=== PATIENT | male | born 1955 | race Caucasian/White ===

== ENCOUNTER 2017-12-03 08:52 | Emergency (ER) | payer BC ==
[2017-12-03 09:14] VITALS: BP 155/85
[2017-12-03] MEDS ORDERED: Albuterol 2.5 MG/3 ML NEB.SOL* (0.083%) INH ONE (09:35)
[2017-12-03] MEDS ORDERED: Ipratropium 0.5MG/2.5ML NEB* 0.5 MG/2.5 ML NEB.SOLN INH ONE (09:35)
--- NOTE | 2017-12-03 09:35 | UC ---
Respiratory Complaint HPI - HPI Summary HPI Summary: The patient is a 62-year-old male with a 1 week history of cough. He has had some shortness of breath with exertion. He states that if he attempts to take a deep breath in or talk he starts to cough. He is had no fever or chills. He denies any chest pain. His a smoker. He has had bronchitis. - History of Current Complaint Chief Complaint: UCRespiratory Stated Complaint: COUGH Time Seen by Provider: 12/03/17 09:29 Hx Obtained From: Patient Onset/Duration: Gradual Onset, Lasting Days Timing: Constant Severity Initially: Mild Severity Currently: Mild Pain Intensity: 3 Pain Scale Used: 0-10 Numeric Character: Cough: Nonproductive Aggravating Factors: Deep Breaths Alleviating Factors: Nothing Associated Signs And Symptoms: Positive: Wheezing - Allergies/Home Medications Allergies/Adverse Reactions: Allergies Allergy/AdvReac Type Severity Reaction Status Date / Time Penicillins Allergy Unknown Verified 12/03/17 09:08 Reaction Details Home Medications: Home Medications Amlodipine/Atorvastatin [Amlodipine Besylate/Atorv 2.5-10 mg] 1 tab PO DAILY 01/13 [History Confirmed 12/03/17] PMH/Surg Hx/FS Hx/Imm Hx Previously Healthy: Yes Cardiovascular History: Hypertension - Surgical History Surgical History: None - Family History Known Family History: Positive: Hypertension - Social History Alcohol Use: Daily Alcohol Amount: 2 glasses of wine Substance Use Type: None Smoking Status (MU): Heavy Every Day Tobacco Smoker Type: Cigarettes Amount Used/How Often: 1 PPD Cessation Counseling: Patient Advised to Stop Review of Systems Constitutional: Negative Skin: Negative Eyes: Negative ENT: Negative Respiratory: Shortness Of Breath, Cough Cardiovascular: Negative Gastrointestinal: Negative Genitourinary: Negative Motor: Negative Neurovascular: Negative Musculoskeletal: Negative Neurological: Negative Psychological: Negative Is Patient Immunocompromised?: No All Other Systems Reviewed And Are Negative: Yes Physical Exam Triage Information Reviewed: Yes Appearance: Well-Appearing, No Pain Distress, Well-Nourished Vital Signs: Initial Vital Signs Temp 98.9 F 12/03/17 09:05 Pulse 81 12/03/17 09:05 Resp 21 12/03/17 09:05 BP 155/85 12/03/17 09:05 Pulse Ox 93 12/03/17 09:05 Eye Exam: Normal Eyes: Positive: Conjunctiva Clear ENT: Positive: Hearing grossly normal, Uvula midline. Negative: Nasal congestion, Nasal drainage, Trismus, Muffled voice, Hoarse voice Neck: Positive: Supple, Nontender, No Lymphadenopathy Respiratory: Positive: No respiratory distress, No accessory muscle use, Wheezing Cardiovascular: Positive: RRR, No Murmur Musculoskeletal: Positive: ROM Intact, No Edema Neurological: Positive: Alert Psychological Exam: Normal Skin Exam: Normal UC Diagnostic Evaluation - Laboratory O2 Sat by Pulse Oximetry: 93 - low normal - Radiology Xray Interpretation: Positive (See Comments) - 1. SMALL BILATERAL INFILTRATES. Radiology Interpretation Completed By: Radiologist Re-Evaluation - Re-Evaluation First Eval Re-Evaluation Time: 10:25 Change: Improved - much better subjectively/better air movement/no wheezing Respiratory Course/Dx - Course Course Of Treatment: IMPRESSION: 1. SMALL BILATERAL INFILTRATES. 2. THERE IS A SMALL 6 MM PULMONARY NODULAR DENSITY WHICH PROJECTS ABOVE THE LEFT LUNG BASE. ONLY SEEN IN THE PA VIEW. RECOMMEND AN OUTPATIENT CONTRAST ENHANCED CT OF THE CHEST FOR. FURTHER EVALUATION - Differential Dx/Diagnosis Provider Diagnoses: bibasilar pneumonia. bronchospasm. pulmonary nodule (left base) Discharge - Sign-Out/Discharge Documenting (check all that apply): Discharge/Admit/Transfer - Discharge Plan Condition: Stable Disposition: HOME Prescriptions: DOXYcycline CAP(*) [DOXYcycline 100MG CAP(*)] 100 mg PO BID #20 cap predniSONE [Deltasone 20 MG TAB] 40 mg PO DAILY #10 tab Patient Education Materials: Bronchospasm (ED), Pulmonary Nodules (ED), Pneumonia (ED) Referrals: Ben Barney DO [Primary Care Provider] - 1 Week Additional Instructions: use inhaler as directed recheck for new or worsening symptoms the radiologist has suggest you get a CT of your chest. Below is a copy of his final XR report 1. SMALL BILATERAL INFILTRATES. 2. THERE IS A SMALL 6 MM PULMONARY NODULAR DENSITY WHICH PROJECTS ABOVE THE LEFT LUNG BASE ONLY SEEN IN THE PA VIEW. RECOMMEND AN OUTPATIENT CONTRAST ENHANCED CT OF THE CHEST FOR FURTHER EVALUATION. the doxy should be taken with food It can cause sun sensitivity avoid sunexposure/use sun screen you should stop smoking - Billing Disposition and Condition Condition: STABLE Disposition: Home
--- NOTE | 2017-12-03 09:57 | RAD ---
INDICATION: Cough and wheezing. COMPARISON: There are no prior studies available for comparison. TECHNIQUE: Dual-energy PA and lateral views of the chest were obtained. FINDINGS: The heart is within normal limits in size. Mediastinal contours appear normal. There are patchy infiltrates at both lung bases. There is a faint 6 mm pulmonary nodule which projects above the left lung base. No pleural effusion is seen. IMPRESSION: 1. SMALL BILATERAL INFILTRATES. 2. THERE IS A SMALL 6 MM PULMONARY NODULAR DENSITY WHICH PROJECTS ABOVE THE LEFT LUNG BASE ONLY SEEN IN THE PA VIEW. RECOMMEND AN OUTPATIENT CONTRAST ENHANCED CT OF THE CHEST FOR FURTHER EVALUATION.
[2017-12-03] MEDS ORDERED: Albuterol HFA INHALER* 8 gm MDI INH ONE (10:22)
== END 2017-12-03 10:48 | disposition home or self-care (01) ==
LOC: UCCORT 08:52
DX: J18.9 Pneumonia, unspecified organism (principal); J98.01 Acute bronchospasm; R91.1 Solitary pulmonary nodule; Z88.0 Allergy status to penicillin; I10 Essential (primary) hypertension; F17.210 Nicotine dependence, cigarettes, uncomplicated
CPT/HCPCS: 71046; 99202; A9270-GY; G0463